=== PATIENT | male | born 1955 | race American Indian/Alaskan Native ===

== ENCOUNTER 2016-11-12 06:19 | Emergency (ER) | payer SELFPAY ==
[2016-11-12] MEDS ORDERED: NACL 0.9% 1000 ML 1,000 ML ONE (07:21)
[2016-11-12] MEDS ORDERED: KEPPRA 1,000 MG/NS 0.75% 100ML 1,000 MG/100 ML BAG IV ONE ×2 (07:21)
[2016-11-12] MEDS ORDERED: NACL 0.9% 1000 ML 1,000 ML IV ONE (07:22)
[2016-11-12 08:23] LABS: Basophils % (Auto) 0.5 % (0.0-1.8); Eosinophils % (Auto) 0.2 % (0.0-4.3); Hematocrit 41.9 % (35.5-45.6); Hemoglobin 13.8 gm/dl (11.8-15.2); Mean Corpuscular HGB Conc 33 % (32-34); Mean Corpuscular Hemoglobin 28 pg (28-32); Mean Corpuscular Volume 86 fl (84-94); Platelet Count 245 K/mm3 (140-440); Red Blood Count 4.89 M/mm3 (3.65-5.03); Red Cell Distribution Width 13.9 % (13.2-15.2); White Blood Count 5.5 K/mm3 (4.5-11.0)
[2016-11-12 08:33] LABS: Alanine Aminotransferase 9 units/L (7-56); Albumin 3.7 g/dL (3.9-5); Alkaline Phosphatase 98 units/L (35-129); Blood Urea Nitrogen 11 mg/dL (9-20); Calcium 8.5 mg/dL (8.4-10.2); Carbon Dioxide 22 mmol/L (22-30); Creatine Kinase 358 units/L (55-170); Glucose 102 mg/dL (75-100); Total Protein 7.5 g/dL (6.3-8.2)
[2016-11-12 08:34] LABS: Anion Gap 17 mmol/L; Chloride 106.8 mmol/L (98-107); Potassium 4.3 mmol/L (3.6-5.0); Sodium 141 mmol/L (137-145)
--- NOTE | 2016-11-12 10:59 | Emergency Department Report ---
HPI - General Chief Complaint: Seizure Time Seen by Provider: 11/12/16 07:21 - HPI HPI: The patient is a 60-year-old male with a history of epilepsy, who presents for evaluation of seizure. Per the patient's , the patient exhibited tonic- clonic seizure-like activity at 5 AM this morning, constant for 5 minutes and severe, self resolving, and associated with postictal confusion. The patient only complains of mild lightheadedness, exacerbated with position changes, improved with lying flat rest. The patient states that he does not recall having seizure. The patient denies fever, head injury, headache, neck pain, neck stiffness, vision or hearing changes, smell or taste changes, paresthesias , facial drooping, slurred speech, urine or bowel incontinence or retention, or other focal neurological deficit. ED Past Medical Hx - Past Medical History Previous Medical History?: Yes Hx Seizures: Yes Additional medical history: admitted for CP with hypotension, cleared with no dx - Surgical History Past Surgical History?: Yes Hx Appendectomy: Yes - Social History Smoking Status: Current Some Day Smoker Substance Use Type: Alcohol - Medications Home Medications: Home Medications Medication Instructions Recorded Confirmed Last Taken Type levETIRAcetam [Keppra TAB] 500 mg PO BID #60 tablet 11/12/16 Unknown Rx levETIRAcetam [Keppra TAB] 750 mg PO BID 11/12/16 11/12/16 Unknown History ED Review of Systems ROS: Stated complaint: SEIZURE Other details as noted in HPI Constitutional: denies: fever; reports lightheadedness ENT: denies: throat or neck pain Respiratory: denies: cough, shortness of breath Cardiovascular: denies: chest pain Endocrine: denies unexplained weight loss or gain Gastrointestinal: denies: abdominal pain, nausea Genitourinary: denies: dysuria Musculoskeletal: denies: leg swelling Skin: denies: rash Neurological: denies: headache Hematological/Lymphatic: denies: easy bleeding or easy bruising Psych: denies sadness or hopelessness Physical Exam - Physical Exam Vital Signs: Vital Signs 11/12/16 11/12/16 06:30 07:31 Pulse Rate 81 Respiratory 14 Rate Blood Pressure 133/83 O2 Sat by Pulse 100 100 Oximetry Physical Exam: General: well-nourished, well-developed, no acute distress Head: Normocephalic, atraumatic Eyes: normal sclera ENT: Mucous membranes are pale and dry Neck: No neck stiffness, no cervical adenopathy Respiratory: Breath sounds equal bilaterally, no wheezing, rales, or rhonchi Cardio: S1 and S2 present, no murmurs, rubs, gallops, capillary refill is delayed Abdomen: Normoactive bowel sounds, soft abdomen, no rigidity, no guarding or rebound tenderness Chest WALL/Back: No tenderness to palpation of the chest wall, no CVA tenderness with percussion Musc: No pitting edema Skin: No rash Neuro: alert oriented x4, normal cognition, speech normal, PERRL, EOM intact, no facial drooping, no uvula or tongue deviation on protrusion, no deficit with rotation of neck or shoulder shrug, no obvious gross motor deficit in the upper or lower extremities with flexion or extension at the shoulder, elbow, wrist, hip, knee, or ankle bilaterally, no obvious gross sensation deficit to crude touch or 2 pt discrimination, 2+ symmetric reflexes on DTR testing, no dysmetria , dysdiadochokinesia, no coordination deficit with [id number] or heel-to- silva testing,, Babinski downgoing, romberg negative, patient able to to ambulate without abnormal gait Psych: Normal affect ED Course Vital Signs 11/12/16 11/12/16 06:30 07:31 Pulse Rate 81 Respiratory 14 Rate Blood Pressure 133/83 O2 Sat by Pulse 100 100 Oximetry ED Medical Decision Making - Lab Data Result diagrams: 11/12/16 07:53 11/12/16 07:53 - Medical Decision Making The patient was seen and examined by myself. The patient is placed on a monitor tech and continuous pulse ox. On initial evaluation, the patient was found to be in no distress. Evaluation orders were placed. The patient is given 1 L normal saline fluid bolus for treatment of dehydration. Lab results were grossly unremarkable. The patient given IV Keppra for treatment of his seizure. The patient was reevaluated and reported that their symptoms were resolved. He says he feels back to his normal baseline would like to be discharged home. The patient was monitored in the emergency department for greater than 2 hours without any seizure-like activity. The patient is stable for discharge with outpatient follow-up. The patient is given follow-up and return instructions. The patient expressed understanding and agreed with the plan. The patient is discharged in stable condition. Critical care attestation.: If time is entered above; I have spent that time in minutes in the direct care of this critically ill patient, excluding procedure time. ED Disposition Clinical Impression: Seizure disorder, Dehydration Disposition: DC-01 TO HOME OR SELFCARE Is pt being admited?: No Does the pt Need Aspirin: No Condition: Stable Instructions: Dehydration (ED), Epilepsy (ED) Prescriptions: levETIRAcetam [Keppra TAB] 500 mg PO BID #60 tablet Referrals: PRIMARY CARE, [Primary Care Provider] - 3-5 Days SHAGUFTA STAFFORD MD [Staff Physician] - 3-5 Days Time of Disposition: 11:03
[2016-11-12 11:07] VITALS: BP 134/77
== END 2016-11-12 11:13 | disposition home or self-care (01) ==
LOC: ED 06:19
DX: G40.909 Epilepsy, unspecified, not intractable, without status epilepticus (principal); E86.0 Dehydration; Z72.0 Tobacco use
CPT/HCPCS: 36415; 80053; 82550; 83735; 85025; 96361; 96374; 99284; J1953; J7030